=== PATIENT | female | born 1940 | race Asian ===

== ENCOUNTER 2021-07-19 09:01 | Outpatient (CLI) | payer OTHER | END 2021-07-19 18:56 | disposition home or self-care (01) | LOC: MRI 09:01 | PROVIDERS: ATTEND Internal Medicine | DX: R05.9 Cough, unspecified (principal); R41.82 Altered mental status, unspecified; E11.9 Type 2 diabetes mellitus without complications; N19 Unspecified kidney failure; E87.5 Hyperkalemia ==

== ENCOUNTER 2021-09-28 09:02 | Outpatient (CLI) | payer OTHER | END 2021-09-28 19:35 | disposition home or self-care (01) | LOC: CT 09:02 | PROVIDERS: ATTEND Internal Medicine | DX: R42 Dizziness and giddiness (principal); R51.9 Headache, unspecified ==